=== PATIENT | female | born 1965 ===

== ENCOUNTER 2018-11-23 00:23 | Emergency (ER) | payer BC ==
[2018-11-23] MEDS ORDERED: Sodium Chloride 0.9% 1,000 ML ONE (00:58)
[2018-11-23] MEDS ORDERED: Sodium Chloride 0.9% 1,000 ML IV ONE (01:00)
[2018-11-23 01:14] LABS: BASO # 0.1 K/uL (0.0-0.2); BASO % 0.7 % (0.0-2.0); EOS # 0.2 K/uL (0.0-0.7); EOS % 1.5 % (0.0-4.0); HEMOGLOBIN 13.7 g/dL (11.0-16.0); LYMPH # 2.1 K/uL (1.0-4.3); MEAN CELL VOLUME 81.8 fL (81.0-99.0); MEAN CORPUSCULAR HEMOGLOBIN 26.1 pg (27.0-31.0); MEAN PLATELET VOLUME 8.9 fL (7.2-11.7); MONO # 1.3 K/uL (0.0-0.8); MONO % 9.8 % (0.0-10.0); NEUT # 9.6 K/uL (1.8-7.0); RBC 5.25 Mil/uL (3.80-5.20); RED CELL DISTRIBUTION WIDTH 15.5 % (11.5-14.5); WHITE BLOOD COUNT 13.3 K/uL (4.8-10.8)
[2018-11-23 01:15] LABS: SQUAMOUS EPITHIAL 1 /hpf (0-5); URINE BILIRUBIN NEGATIVE (NEGATIVE); URINE BLOOD NEGATIVE (NEGATIVE); URINE CLARITY Clear (Clear); URINE COLOR Straw (YELLOW); URINE GLUCOSE (UA) NORMAL (Normal); URINE LEUKOCYTE ESTERASE NEG Leu/uL (Negative); URINE PROTEIN NEGATIVE (NEGATIVE); URINE UROBILINOGEN NORMAL mg/dL (0.2-1.0)
[2018-11-23 01:28] LABS: ALB/GLOB RATIO 1.6 (1.0-2.1); ALBUMIN 4.7 g/dL (3.5-5.0); ALT/SGPT 23 U/L (9-52); AST/SGOT 30 U/L (14-36); BLOOD UREA NITROGEN 19 mg/dL (7-17); CALCIUM 9.9 mg/dl (8.6-10.4); GFR NON-AFRICAN AMERICAN 58
--- NOTE | 2018-11-23 03:05 | C.PDOC ---
History Of Present Illness 53-year-old female presents to the ED for evaluation of left flank pain that has been radiating to the left side of her abdomen since 19:00 tonight. Patient states she has been told that she has kidney stones in the past, but has never experienced the pain of passing a stone. Patient also reports associated nausea and vomiting. She denies fever, chills, diarrhea, changes in urination, or vaginal complaints. Chief Complaint (Nursing): Back Pain History Per: Patient History/Exam Limitations: no limitations Onset/Duration Of Symptoms: Hrs Current Symptoms Are (Timing): Still Present Quality Of Discomfort: "Pain" Additional History Per: Patient Past Medical History Reviewed: Historical Data, Nursing Documentation, Vital Signs Vital Signs: Last Vital Signs Temp 97.8 F 11/23/18 00:30 Pulse 89 11/23/18 00:30 Resp 24 11/23/18 00:30 BP 148/95 H 11/23/18 00:30 Pulse Ox 99 11/23/18 00:30 - Medical History PMH: HTN, Kidney Stones, Chronic Kidney Disease Surgical History: No Surg Hx Family History: States: Unknown Family Hx - Social History Hx Alcohol Use: No Hx Substance Use: No - Immunization History Hx Tetanus Toxoid Vaccination: No Hx Influenza Vaccination: No Hx Pneumococcal Vaccination: No Review Of Systems Constitutional: Negative for: Fever, Chills, Weakness Gastrointestinal: Positive for: Nausea, Vomiting, Abdominal Pain (left-sided ), Diarrhea Genitourinary: Negative for: Dysuria, Hematuria, Vaginal Discharge, Vaginal Bleeding Musculoskeletal: Positive for: Other (left flank pain ) Skin: Negative for: Rash Neurological: Negative for: Weakness, Numbness, Dizziness Physical Exam - Physical Exam Appears: Well, Non-toxic, No Acute Distress, Other (uncomfortable ) Skin: Normal Color, Warm, No Rash Oral Mucosa: Moist Neck: Supple Chest: Symmetrical Cardiovascular: Rhythm Regular Respiratory: No Accessory Muscle Use, Other (normal inspiratory effort ) Gastrointestinal/Abdominal: Soft, Tenderness (left lower quadrant ), No Guarding, No Rebound Back: CVA Tenderness (left-sided ), Other (left-flank tenderness on palpation ) Extremity: Normal ROM, Capillary Refill (less than 2 seconds ) Extremity: Bilateral: Atraumatic Neurological/Psych: Oriented x3, Normal Cranial Nerves (grossly intact ) ED Course And Treatment - Laboratory Results Result Diagrams: 11/23/18 01:10 11/23/18 01:10 Lab Results: Total Bilirubin 0.3 mg/dL (0.2-1.3) 11/23/18 01:10 AST 30 U/L (14-36) 11/23/18 01:10 ALT 23 U/L (9-52) 11/23/18 01:10 Alkaline Phosphatase 183 U/L (38-126) H 11/23/18 01:10 Total Protein 7.8 g/dL (6.3-8.3) 11/23/18 01:10 Albumin 4.7 g/dL (3.5-5.0) 11/23/18 01:10 Globulin 3.0 gm/dL (2.2-3.9) 11/23/18 01:10 Albumin/Globulin Ratio 1.6 (1.0-2.1) 11/23/18 01:10 Urine Color Straw (YELLOW) 11/23/18 01:10 Urine Clarity Clear (Clear) 11/23/18 01:10 Urine pH 6.0 (5.0-8.0) 11/23/18 01:10 Ur Specific [place] 1.010 (1.003-1.030) 11/23/18 01:10 Urine Protein Negative mg/dL (NEGATIVE) 11/23/18 01:10 Urine Glucose (UA) Normal mg/dL (Normal) 11/23/18 01:10 Urine Ketones 1+ mg/dL (NEGATIVE) H 11/23/18 01:10 Urine Blood Negative (NEGATIVE) 11/23/18 01:10 Urine Nitrate Negative (NEGATIVE) 11/23/18 01:10 Urine Bilirubin Negative (NEGATIVE) 11/23/18 01:10 Urine Urobilinogen Normal mg/dL (0.2-1.0) 11/23/18 01:10 Ur Leukocyte Esterase Neg Romina/uL (Negative) 11/23/18 01:10 Urine WBC (Auto) < 1 /hpf (0-5) 11/23/18 01:10 Urine RBC (Auto) 1 /hpf (0-3) 11/23/18 01:10 Ur Squamous Epith Cells 1 /hpf (0-5) 11/23/18 01:10 O2 Sat by Pulse Oximetry: 99 (on RA) Pulse Ox Interpretation: Normal Medical Decision Making Medical Decision Making: Will r/o patient for stone. Bloodwork, urinalysis, and CT A/P ordered. Toradol IVP, Zofran IVP and IV Fluids given. CT scan shows 5mm uvj stone with mild hydroureter. patient pain is controlled at this time. she will be given pain medication and urology follow up. Disposition Counseled Patient/Family Regarding: Diagnosis, Need For Followup, Rx Given - Disposition Referrals: Nolberto Heart MD [Staff Provider] - Disposition: HOME/ ROUTINE Disposition Time: 04:19 Condition: STABLE Prescriptions: Hydrocodone/Acetaminophen [Hydrocodone-Acetamin 5-325 mg] 1 each PO QID #16 tablet Ibuprofen [Motrin Tab] 800 mg PO TID PRN #21 tab PRN Reason: Pain, Moderate (4-7) Tamsulosin [Flomax] 0.4 mg PO DAILY 4 Days cap Instructions: Urinary Obstruction (DC), Renal Colic (DC) Forms: [facility] (Swedish), General Discharge Instructions, Work Excuse - Clinical Impression Clinical Impression: Ureterovesical junction (UVJ) obstruction - PA / CHOR[employer] DANCER / Resident Statement MD/DO has reviewed & agrees with the documentation as recorded. - Scribe Statement The provider has reviewed the documentation as recorded by the Scribe (Joan Haley) All medical record entries made by the Scribe were at my direction and personally dictated by me. I have reviewed the chart and agree that the record accurately reflects my personal performance of the history, physical exam, medical decision making, and the department course for this patient. I have also personally directed, reviewed, and agree with the discharge instructions and disposition.
[2018-11-23 03:43] VITALS: PULSE 80
[2018-11-23 04:38] VITALS: BP 111/70; RESP 18; TEMP 98.2; O2SAT 98
--- NOTE | 2018-11-23 12:14 | CT ---
PROCEDURE: CT Abdomen and Pelvis without Oral or IV contrast. HISTORY: flank pain COMPARISON: Abdominal ultrasound performed 04/01/17 TECHNIQUE: Contiguous axial images of the abdomen and pelvis. No oral or IV contrast administered. Coronal and Sagittal reformats generated and reviewed. Radiation dose: Total exam DLP = 585.72 mGy-cm. This CT exam was performed using one or more of the following dose reduction techniques: Automated exposure control, adjustment of the mA and/or kV according to patient size, and/or use of iterative reconstruction technique. FINDINGS: There is limited evaluation of the solid organs without the administration of IV contrast. LOWER THORAX: No visible consolidation, pleural effusion, or pneumothorax. LIVER: Unremarkable unenhanced appearance. GALLBLADDER AND BILE DUCTS: Contracted gallbladder otherwise grossly unremarkable. PANCREAS: Unremarkable unenhanced appearance. SPLEEN: At least 2 sub cm splenules. Otherwise unremarkable. ADRENALS: Unremarkable unenhanced appearance. KIDNEYS AND URETERS: 5 mm distal left UVJ calculus with proximal hydroureteronephrosis. The right kidney appears unremarkable without hydronephrosis or obstructing calculus. BLADDER: The urinary bladder appears unremarkable. REPRODUCTIVE: Uterus is present. APPENDIX: The appendix appears within normal limits of caliber. No secondary signs of acute appendicitis. BOWEL: The stomach is nondistended. Lack of oral contrast limits evaluation for bowel pathology. The bowel loops appear within normal limits of caliber without evidence of intestinal obstruction. PERITONEUM: No significant free fluid. No definite free air. LYMPH NODES: No bulky lymphadenopathy identified. VASCULATURE: Atherosclerotic calcifications of the aorta and branches. No aortic aneurysm. BONES: No acute osseous abnormality is detected. OTHER FINDINGS: None. IMPRESSION: 5 mm distal left UVJ calculus with proximal hydroureteronephrosis. Preliminary impression was provided by [facility].
== END 2018-11-23 04:37 | disposition home or self-care (01) ==
LOC: C.ER 00:23
DX: N13.1 Hydronephrosis with ureteral stricture, not elsewhere classified (principal)
CPT/HCPCS: 74176; 80053; 81001; 81025; 85025; 87086; 96374; 96375; 99284; J1885; J2405; J7030